=== PATIENT | male | born 1990 | race Caucasian/White ===

== ENCOUNTER 2017-03-11 01:42 | Emergency (ER) | payer MEDICAID ==
[2017-03-11 03:28] VITALS: BP 155/87
== END 2017-03-11 03:28 | disposition home or self-care (01) ==
LOC: ED 01:42
DX: J34.89 Other specified disorders of nose and nasal sinuses (principal); Y04.2XXA Assault by strike against or bumped into by another person, initial encounter; Y99.8 Other external cause status; Y92.89 Other specified places as the place of occurrence of the external cause

== ENCOUNTER 2018-04-13 21:44 | Emergency (ER) | payer SELFPAY ==
[~2018-04-13] VITALS: Ht 170.2 cm; Wt 99.8 kg
[2018-04-13 21:49] VITALS: Ht 170.2 cm; Wt 99.8 kg
[2018-04-14 00:22] VITALS: BP 110/74
== END 2018-04-14 00:22 | disposition home or self-care (01) ==
LOC: ED 21:44
DX: S61.512A Laceration without foreign body of left wrist, initial encounter (principal); W26.8XXA Contact with other sharp object(s), not elsewhere classified, initial encounter; Y93.89 Activity, other specified; Y92.89 Other specified places as the place of occurrence of the external cause; Y99.8 Other external cause status
CPT/HCPCS: J2001